=== PATIENT | female | born 1960 | race Hispanic/Latino ===

== ENCOUNTER 2016-11-03 06:16 | Day surgery (SDC) | payer MEDICAID ==
[~2016-11-03 06:16] MED LIST: TETRACAINE 0.5% OD NR
[2016-11-03] MEDS: MYDRIACYL 1% OD SCH ×3 (07:25→07:35)
[2016-11-03] MEDS: VIGAMOX OD SCH ×3 (07:25→07:35)
[2016-11-03] MEDS: AK-Dilate OD NR ×3 (07:25→07:35)
[2016-11-03] MEDS ORDERED: NACL BACTERIOSTATIC INFILTRATI ONE (07:34)
--- NOTE | 2016-11-03 07:42 | Anesthesia Consultation ---
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
--- NOTE | 2016-11-03 07:43 | Anesthesia Day of Surgery ---
Anesthesia Day of Surgery - Day of Surgery Patient Examined: Yes Patient H&P Reviewed: Yes Patient is NPO: Yes
[2016-11-03] MEDS ORDERED: PRED FORTE 1% OD SCH (08:00)
[2016-11-03] MEDS ORDERED: SUBLIMAZE ONE (08:14)
[2016-11-03] MEDS ORDERED: VERSED ONE (08:14)
[2016-11-03] MEDS ORDERED: NACL P/F VIAL (10 ML) 10 ML ONE (08:15)
[2016-11-03] MEDS ORDERED: XYLOCAINE 1% MPF 5 mL IJ ONE (09:02)
[2016-11-03] MEDS ORDERED: ADRENALIN IV ONE (09:05)
--- NOTE | 2016-11-03 09:43 | Operative Report ---
Operative Report Operative Report: PATIENT'S NAME: DATE OF : DATE OF SURGERY: 11/03/2016 PREOPERATIVE DIAGNOSIS: Cataract right eye POSTOPERATIVE DIAGNOSIS: Same OPERATIVE PROCEDURE: Phacoemulsification with intraocular lens implantation, right eye SURGEON: Julia Loza M.D. MANAGER ADVANCED SURGEON: Demarcus Lens: AO60 30.0 D ANESTHESIA: Monitored anesthesia care in combination with topical and intracameral anesthesia because of the established specific risk of reflux, arrhythmias, or anxiety attacks associated with ocular manipulation, as well as the difficulty of the powertrain control systems engineer to manage such potentially catastrophic events while simultaneously attempting to complete the surgical procedure and was deemed necessary for the patient's safety to have an Insect Control Inspector present during the procedure whenever possible. An Insect Control Inspector was utilized to regulate the intravenous sedation of the patient so the patient was cooperative yet not asleep in order for the patient to successfully maintain fixation of the eye on the operating light of the microscope. COMPLICATIONS: Latex morphine IV dye No blood loss. ALLERGIES: No known drug allergies PROGNOSIS: Excellent INDICATIONS FOR SURGERY: The patient is undergoing surgery in the hopes of eliminating or improving these visual difficulties. PROCEDURE: After arriving at the surgery center, the patient was given topical anesthetic and dilating drops, as noted in the record. The patient was then taken into the operating room and given more anesthetic drops. The eyelids , lashes, and lid margins were scrubbed with Betadine solution, and the patient was draped. The Nurse Insect Control Inspector administered IV sedation and monitored the patient during the procedure. The eye was then fixated with a 0.12, and a stab incision was made in the peripheral clear cornea into the anterior chamber. This was made on my left side. Viscoelastic was next used to fill the anterior chamber. The eye was once again fixated with the 0.12 forceps and a keratome was used make an incision in clear cornea peripherally on my right hand side temporally. The capsule forceps were used to open the central anterior capsule and then make a continuous round capsulotomy. Hydrodissection was carried out utilizing a cannula and balanced salt solution to delineate the cortical material from the capsule and the nucleus from the cortical material. The phaco tip was introduced into the eye and used to remove the anterior cortical material in the area of the capsulotomy. Then the phaco tip was buried into the nucleus, and a chopping instrument was introduced into the eye and used to provide countertraction in the nucleus between this instrument and the phaco tip fracturing the nucleus. This procedure was repeated multiple times, providing multiple small segments of the lens, and then the phaco tip was used to remove each of these segments. An I/A tip was then used to remove the remaining cortex. The anterior chamber was refilled with viscoelastic. An one-piece, acrylic intraocular lens was then placed into an inserting cartridge. The tip of the inserting cartridge was introduced into the keratome incision and into the anterior chamber. The implant was gently advanced through the cartridge and into the eye, where it unfolded, and both haptics were placed in the capsular bag, where it centered nicely and appeared to be well fixated. After placement of the intraocular lens, the I~and~A handpiece was placed back into the eye and used to remove the viscoelastic, including viscoelastic that was behind the optic of the intraocular lens. The anterior chamber was then filled with balanced salt solution, and hydration of the wound was used to cause swelling of the wound and more appropriate watertight closure. When the wound was found to be firm, the patient was asked to comment on how bright the light was. If there was no light perception at all or if the light was substantially dimmer than during the rest of the surgery, the amount of fluid in the eye was decompressed to lower the intraocular pressure until the patient could see the bright light again. This was done to avoid any damage or decreased blood flow to the optic nerve. MEDICATIONS APPLIED AT END OF SURGERY: One drop of Pred Forte and Vigamox The patient was given a shield to wear at night and was instructed not to rub or push on the eye. DISCHARGE SUMMARY: The patient was released in stable condition. The patient and those with the patient were given a written sheet of postoperative instructions and counseling on any abnormal laboratory studies. The patient is to see us tomorrow for follow-up in the office and is to call immediately for any difficulties. Julia Loza M.D. Date
--- NOTE | 2016-11-03 09:44 | Short Stay Summary ---
Short Stay Documentation Date of service: 11/03/16 - History H&P: obtained from office - Allergies and Medications Current Medications: Allergies latex Allergy (Verified 11/02/16 09:22) blisters morphine Allergy (Verified 11/02/16 09:22) Hives IV dye Allergy (Uncoded 11/02/16 09:22) Scalded Skin Home Medications Medication Instructions Recorded Confirmed Last Taken Type Ascorbic Acid [Vitamin C] 500 mg PO DAILY 11/02/16 11/03/16 11/02/16 History Aspirin [Adult Low Dose Aspirin EC] 81 mg PO DAILY 11/02/16 11/03/16 11/02/16 History AtorvaSTATin [Lipitor] 40 mg PO DAILY 11/02/16 11/03/16 11/02/16 History Benazepril HCl [Lotensin] 10 mg PO DAILY 11/02/16 11/03/16 11/03/16 04:30 History Clonidine HCl [Clonidine HCl] 1 tab PO DAILY 11/02/16 11/03/16 11/03/16 04:30 History Clopidogrel Bisulfate [Plavix] 330 mg PO HS 11/02/16 11/03/16 11/02/16 History Hydrochlorothiazide 1 tab PO DAILY 11/02/16 11/03/16 11/02/16 History [Hydrochlorothiazide] Metformin HCl [Metformin HCl] 500 mg PO DAILY 11/02/16 11/03/16 11/02/16 History Ranitidine HCl [Zantac 150 MG TAB] 150 mg PO HS 11/02/16 11/03/16 11/02/16 History Active Medications Moxifloxacin HCl (Vigamox) 1 drops OD Q5MIN [facility] Stop: 11/03/16 18:00 Last Admin: 11/03/16 07:35 Dose: 1 drops Phenylephrine HCl (Ak-Dilate) 1 drops OD ONCE NR Stop: 11/03/16 18:00 Last Admin: 11/03/16 07:35 Dose: 1 drops Prednisolone Acetate (Pred Forte 1%) 1 drops OD QID PAUL Tetracaine HCl (Tetracaine 0.5%) 1 drops OD ONCE NR Stop: 11/03/16 18:00 Last Admin: 11/03/16 07:25 Dose: 1 drops Tropicamide (Mydriacyl 1%) 1 drops OD Q5MIN [facility] Stop: 11/03/16 18:00 Last Admin: 11/03/16 07:35 Dose: 1 drops - Brief post op/procedure progress note Date of procedure: 11/03/16 Pre-op diagnosis: cataract right eye Post-op diagnosis: same Procedure: Intramuscular lesion with intraocular lens insertion right eye Anesthesia: MAC Surgeon: JELLY MATT Estimated blood loss: none Pathology: none Condition: stable - Disposition Condition at discharge: Good - Discharge Diagnoses (1) Cataract Status: Acute
--- NOTE | 2016-11-03 10:13 | Post Anesthesia Evaluation ---
- Post Anesthesia Evaluation Patient Participated: Yes Airway Patent: Yes Stable Respiratory Function: Yes Temp > 96.8F: Yes Pain Manageable: Yes Adequeate Hydration: Yes Anesthesia Complications: No Block Receding Appropriately: Not Applicable
[2016-11-03 11:06] VITALS: BP 110/68
== END 2016-11-03 10:50 | disposition home or self-care (01) ==
LOC: OR 06:16
DX: E11.36 Type 2 diabetes mellitus with diabetic cataract (principal); G43.909 Migraine, unspecified, not intractable, without status migrainosus; I10 Essential (primary) hypertension; E78.00 Pure hypercholesterolemia, unspecified; K21.9 Gastro-esophageal reflux disease without esophagitis; M19.90 Unspecified osteoarthritis, unspecified site; F10.239 Alcohol dependence with withdrawal, unspecified; Z86.73 Personal history of transient ischemic attack (TIA), and cerebral infarction without residual deficits; Z87.891 Personal history of nicotine dependence; Z86.79 Personal history of other diseases of the circulatory system; Z90.710 Acquired absence of both cervix and uterus; Z98.890 Other specified postprocedural states
CPT/HCPCS: 66984; 82962; J0171; J2250; J3010; V2632

== ENCOUNTER 2017-05-22 14:00 | Outpatient (CLI) | payer MEDICAID ==
--- NOTE | 2017-05-22 16:03 | Magnetic Resonance Report ---
MRI BRAIN WITHOUT CONTRAST INDICATION: TIA. COMPARISON: None similar. FINDINGS: Noncontrast multiplanar and multisequence MRI of the brain demonstrates normal ventricles and sulci without acute infarct, hemorrhage, mass effect or midline shift. Slight periventricular and few high right posterior frontal-parietal cortical FLAIR and T2 weighted hyperintensities as on axial image 20, series 7. No abnormal extra-axial masses or fluid collections. Normal major intracranial vascular flow voids. Normal posterior fossa structures with symmetric seventh and eighth nerve complexes. Small cerebral peduncles T2 hyperintensities/possible lacunar infarcts. Symmetric, grossly unremarkable eye globes. Mild nasal septal deviation. Hypoplastic/aplastic left frontal sinus. Clear remainder imaged paranasal sinuses and mastoid air cells. Cerebellar tonsils extend for approximately 3-4 mm below the foramen magnum, not strictly meeting Chiari 1 malformation criteria. CONCLUSION: No acute intracranial MRI abnormality with few incidental findings, including slightly low-lying cerebellar tonsils, as described. Thank you for the opportunity to participate in this patient's care.
--- NOTE | 2017-05-22 16:05 | Magnetic Resonance Report ---
MRA HEAD WITHOUT CONTRAST INDICATION: TIA. COMPARISON: None similar at this institution. FINDINGS: MRA of the head performed without intravenous contrast and demonstrates no evidence of flow-limiting stenosis, occlusion or vascular malformation. Please note that detection of aneurysms less than 5 mm is limited on this exam. Left vertebral artery dominant. CONCLUSION: Normal study of the [place]. Thank you for the opportunity to participate in this patient's care.
--- NOTE | 2017-05-22 16:56 | Magnetic Resonance Report ---
MRA NECK WITHOUT CONTRAST: INDICATION: TIA. COMPARISON: None similar. FINDINGS: Noncontrast MRA of the neck limited due to motion artifact, though suggests grossly patent bilateral carotid and vertebral arteries. Left vertebral artery noted dominant. CONCLUSION: Limited, though grossly unremarkable neck MRA, as described. Thank you for the opportunity to participate in this patient's care.
== END 2017-05-22 14:01 | disposition home or self-care (01) ==
LOC: MRI 14:00
PROVIDERS: ATTEND Psychiatry & Neurology Neurology
DX: G45.9 Transient cerebral ischemic attack, unspecified (principal); J34.2 Deviated nasal septum; I11.0 Hypertensive heart disease with heart failure; I50.9 Heart failure, unspecified; E78.00 Pure hypercholesterolemia, unspecified; E11.9 Type 2 diabetes mellitus without complications; Z87.891 Personal history of nicotine dependence
CPT/HCPCS: 70544; 70547; 70551